=== PATIENT | female | born 1985 | race Caucasian/White ===

== ENCOUNTER 2023-11-26 19:22 | Outpatient (CLI) | payer MEDICAID, SELFPAY ==
[2023-11-26 19:14] LABS: Basophils # 0.1 K/mm3 (0-0.2); Basophils % 0.9 % (0.1-2.0); Eosinophils # 0.1 K/mm3 (0.0-0.4); Eosinophils % 1.6 % (0.1-12.0); Hematocrit 39.8 % (37.0-47.0); Lymphocytes # 1.8 K/mm3 (0.7-4.5); Mean Corpuscular HGB Conc 32.7 g/dL (31.8-35.4); Mean Corpuscular Hemoglobin 31.1 pg (27.0-31.2); Mean Corpuscular Volume 94.9 fl (81-99); Mean Platelet Volume 10.2 fl (7.4-10.4); Monocytes # 0.3 K/mm3 (0.1-1.0); Monocytes % 4.3 % (1.7-9.3); Neutrophils # 3.7 K/mm3 (1.8-7.8); Neutrophils % 63.2 % (37.0-80.0); Platelet Count 331 K/mm3 (142-424); Red Cell Distribution Width 13.4 % (11.5-17.5); White Blood Count 5.9 K/mm3 (4.8-10.8)
[2023-11-26 19:56] LABS: Albumin Level 4.2 g/dl (3.5-5.0); Albumin/Globulin Ratio 1.4 (1.1-1.8); Alkaline Phosphatase 71 U/L (38-126); Anion Gap 11.5 mEq/L (5-15); Bilirubin,Total 0.4 mg/dl (0.2-1.3); Blood Urea Nitrogen 14 mg/dl (7-17); Calcium 9.9 mg/dl (8.4-10.2); Carbon Dioxide 25 mmol/L (22.0-30.0); Chloride 106 mmol/L (98-107); Chol/HDL Ratio 4.7 (1-3.5); Cholesterol 146 mg/dl (140-200); Estimated Glomerular Filt Rate 55 ml/min (>60); Free T4 (Free Thyroxine) 1.66 ng/dl (0.78-2.19); GFR (African American) 67 ML/MIN (>60); Glucose 95 mg/dl (74-100); HDL Cholesterol 31 mg/dl (40-60); Potassium 3.5 mmoL/L (3.5-5.1); Sodium 139 mmol/L (136-145); Total Protein,Serum 7.2 g/dl (6.3-8.2); Triglycerides 119 mg/dl (30-150); VLDL Cholesterol 24 mg/dL (0-40)
[2023-11-26 20:07] LABS: Direct LDL Cholesterol 82.81 mg/dL (100-129)
[2023-11-26 20:28] LABS: Thyroid Stimulating Hormone 0.86 uIU/mL (0.465-4.68)
[2023-11-26 21:04] LABS: Alanine Aminotransferase 37 U/L (12-78); Aspartate Amino Transferase 41 U/L (14-36)
== END 2023-11-26 23:59 ==
LOC: LAB.DROPOF 19:22
PROVIDERS: PCP Nurse Practitioner Acute Care; Visit Provider Nurse Practitioner Acute Care
DX: R53.83 Other fatigue (principal); F41.9 Anxiety disorder, unspecified; Z79.899 Other long term (current) drug therapy
CPT/HCPCS: 80053; 80061; 84439; 84443; 85025

== ENCOUNTER 2025-07-09 08:58 | Outpatient (CLI) | payer OTHER, SELFPAY ==
[2025-07-09 19:13] LABS: Hematocrit 38.1 % (37.0-47.0); Hemoglobin 12.7 g/dL (12.2-16.2); Immature Granulocytes % 0.1 %; Mean Corpuscular HGB Conc 33.3 g/dL (31.8-35.4); Mean Corpuscular Hemoglobin 30.1 pg (27.0-31.2); Mean Corpuscular Volume 90.3 fl (81-99); Nucleated Red Blood Cells % 0 %; Platelet Count 393 K/mm3 (142-424); Red Blood Count 4.22 M/mm3 (4.20-5.40); Red Cell Distribution Width-SD 42.2 fL; White Blood Count 7.2 K/mm3 (4.8-10.8)
[2025-07-09 19:27] LABS: INR 0.94 (0.9-1.1); Prothrombin Time 10.5 seconds (10.1-12.5)
[2025-07-09 19:32] LABS: Albumin Level 3.2 g/dl (3.5-5.0); Chloride 105 mmol/L (98-107); Potassium 3.3 mmoL/L (3.5-5.1); Sodium 137 mmol/L (136-145)
[2025-07-09 19:34] LABS: Alanine Aminotransferase 135 U/L (12-78); Aspartate Amino Transferase 93 U/L (14-36); Blood Urea Nitrogen 12 mg/dl (7-17); Creatinine,Serum 1.00 mg/dl (0.52-1.04); Estimated Glomerular Filt Rate 61 ml/min (>60); GFR (African American) 74 ML/MIN (>60)
[2025-07-09 19:35] LABS: Alkaline Phosphatase 78 U/L (38-126); Bilirubin,Total 0.4 mg/dl (0.2-1.3); Calcium 8.8 mg/dl (8.4-10.2); Carbon Dioxide 24 mmol/L (22.0-30.0); Glucose 90 mg/dl (74-100); HDL Cholesterol 35 mg/dl (40-60); Total Protein,Serum 7.3 g/dl (6.3-8.2)
[2025-07-09 19:37] LABS: HCG Qualitative, Serum Negative (Negative)
[2025-07-09 19:45] LABS: Albumin/Globulin Ratio 0.7 (1.1-1.8); Anion Gap 12.3 mEq/L (5-15); Cholesterol 174 mg/dl (140-200); Globulin 4.5 g/dL (1.3-3.2)
[2025-07-09 19:48] LABS: Triglycerides 437 mg/dl (30-150)
[2025-07-09 20:06] LABS: Thyroid Stimulating Hormone 0.77 uIU/mL (0.465-4.68)
[2025-07-09 20:34] LABS: Hepatitis C Ab Qual. W/ RFX REACTIVE (Negative)
[2025-07-09 22:42] LABS: HIV Combo Retest NEGATIVE (Negative)
[2025-07-11 09:25] LABS: Hep A Ab, Total Positive (Negative); Hep B Core Ab, Total Negative (Negative); Hep B Surface Ab, Qual Reactive (.); Hepatitis B Surface Antigen Negative (Negative)
--- OUTSIDE RECORDS SUMMARY | 2025-07-13 09:02 | XMS_ITS | Clinical Summary ---
Author Organization [employer] [facility] Address [address] [place] [address] Phone Care Team Providers Care Digital Marketing Assistant Name Role Phone Delfina Mason APRN Primary Care Physician [phone] Conditions or Problems Problem Name Problem Code Onset Date Status Entry Date Provider Comment Standard Description Annotate Counseling for nutrition Z71.3 (ICD-10-CM ) 11/07 Inactive 11/07 James Obando APRN Dietary counseling and surveillance PTSD 84981811 (SNOMED CT) 11/07 Active 11/07 James Obando APRN Post-traumatic stress disorder Opioid dependence 82941548 (SNOMED CT) 11/07 Active 11/07 Jamesisa Obando APRN Opioid dependence Drug dependence 991330104 (SNOMED CT) 10/04 Resolved 10/04 James Obando APRN Drug dependence Body mass index (BMI) 24.0-24.9; adult Z68.24 (ICD-10-CM ) 10/28 Active 10/28 Sveta Claros MD Body mass index [BMI] 24.0-24.9, adult Body mass index (BMI) 26.0-26.9; adult Z68.26 (ICD-10-CM ) 10/08 Correction 10/09 Sveta Claros MD Body mass index [BMI] 26.0-26.9, adult UTI PREG- ASYMPTOMATIC O23.90 (ICD-10-CM ) 10/04 Resolved 10/05 Sveta Claros MD Unspecified genitourinary tract infection in , unspecified trimester F/U Z39.2 (ICD-10-CM ) 10/28 Active 10/28 Sveta Claros MD Encounter for routine follow-up Supervision high risk , unspecified trimester 757627175 (SNOMED CT) 10/04 Resolved 10/04 Sveta Claros MD Procedure carried out on subject Maternal drug dependence, antepartum, unspecified trimester 449626517 (SNOMED CT) 10/04 Resolved 10/04 Sveta Claros MD Drug dependence during - baby not yet delivered Supervision of elderly multigravida , unspecified trimester 702018316 (SNOMED CT) 10/04 Resolved 10/04 Sveta Claros MD Supervision of high risk for multigravida Imprisonment and other incarceratio n 77635161 (SNOMED CT) Resolved Sveta Claros MD Imprisonment Body mass index (BMI) 26.0-26.9; adult Z68.26 (ICD-10-CM ) 10/08 Removed 10/09 Sveat Claros MD Body mass index [BMI] 26.0-26.9, adult Body mass index (BMI) 26.0-26.9; adult Z68.26 (ICD-10-CM ) 10/02 Correction 10/02 Sveta Claros MD Body mass index [BMI] 26.0-26.9, adult 36 weeks gestation of 57844804 (SNOMED CT) 10/08 Inactive 10/09 Sveta Claros MD Gestation period, 36 weeks Body mass index (BMI) 26.0-26.9; adult Z68.26 (ICD-10-CM ) 10/02 Removed 10/02 Carmelina Bragg CNM Body mass index [BMI] 26.0-26.9, adult Body mass index (BMI) 26.0-26.9; adult Z68.26 (ICD-10-CM ) 09/25 Correction 09/25 Carmelina Bragg CNM Body mass index [BMI] 26.0-26.9, adult 34 weeks gestation of 24076684 (SNOMED CT) 09/25 Inactive 09/25 Sveta Claros MD Gestation period, 34 weeks Body mass index (BMI) 26.0-26.9; adult Z68.26 (ICD-10-CM ) 09/25 Removed 09/25 Sveta Claros MD Body mass index [BMI] 26.0-26.9, adult Body mass index (BMI) 25.0-25.9; adult Z68.25 (ICD-10-CM ) 09/15 Correction 09/15 Sveta Claros MD Body mass index [BMI] 25.0-25.9, adult Body mass index (BMI) 25.0-25.9; adult Z68.25 (ICD-10-CM ) 09/15 Removed 09/15 Carmelina Bragg ALVAREZM Body mass index [BMI] 25.0-25.9, adult Body mass index (BMI) 25.0-25.9; adult Z68.25 (ICD-10-CM ) Correction Carmelina Bragg ALVAREZM Body mass index [BMI] 25.0-25.9, adult Body mass index (BMI) 25.0-25.9; adult Z68.25 (ICD-10-CM ) Removed Carmelina PINOM Body mass index [BMI] 25.0-25.9, adult Body mass index (BMI) 23.0-23.9; adult Z68.23 (ICD-10-CM ) 10/04 Correction 10/04 Carmelina Bragg ALVAREZM Body mass index [BMI] 23.0-23.9, adult Irregular menses 35027105 (SNOMED CT) 10/04 Resolved 10/04 Carmelina Mamie Mahsa ALVAREZM Irregular periods Imprisonment and other incarceratio n 67949610 (SNOMED CT) Removed Carmelinaghazala PINOM Imprisonment HEPATITIS C 18085165 (SNOMED CT) 10/06 Inactive 10/06 Sveta Claros MD Viral hepatitis C UTI PREG- ASYMPTOMATIC O23.90 (ICD-10-CM ) 10/04 Removed 10/05 Sveta Claros MD Unspecified genitourinary tract infection in , unspecified trimester 27 weeks gestation of 25527506 (SNOMED CT) 10/04 Inactive 10/05 Sveta Claros MD Gestation period, 27 weeks Body mass index (BMI) 23.0-23.9; adult Z68.23 (ICD-10-CM ) 10/04 Removed 10/04 Sveta Claros MD Body mass index [BMI] 23.0-23.9, adult Supervision of elderly multigravida , unspecified trimester 983199597 (SNOMED CT) 10/04 Removed 10/04 Sveta Claros MD Supervision of high risk for multigravida History of bacterial endocarditis 784475339 (SNOMED CT) 10/04 Active 10/04 Sveta Claros MD History of endocarditis Maternal drug dependence, antepartum, unspecified trimester 028207334 (SNOMED CT) 10/04 Removed 10/04 Sveta Claros MD Drug dependence during - baby not yet delivered Family planning 301701575 (SNOMED CT) 05/22 Resolved 05/22 Sveta Claros MD Contraception care Drug dependence 040829029 (SNOMED CT) 10/04 Removed 10/04 Sveta Claros MD Drug dependence Irregular menses 52330563 (SNOMED CT) 10/04 Removed 10/04 Sveta Claros MD Irregular periods Supervision high risk , unspecified trimester 698345268 (SNOMED CT) 10/04 Removed 10/04 Sveta Claros MD Procedure carried out on subject Family planning 291921786 (SNOMED CT) 05/22 Removed 05/22 Katlyn Becerra APRN Contraception care PERIAPICAL ABSCESS WITHOUT SINUS 087184461 (SNOMED CT) 04/26 Inactive 04/26 Maximiliano Dodson DMD Periapical abscess without sinus tract Medications Medication Instructions Start Date Stop Date Generic Name NDC Provider ESCITALOPRAM OXALATE 10 MG TABS Take a HALF a tablet for 7 nights, then take a WHOLE tablet nightly - deliver to [facility] at [address] [place] [address] ESCITALOPRAM OXALATE [id number] James Obando APRN TRAZODONE HCL 50 MG TABS Take 1 tablet every night by mouth - deliver to [facility] at [address] [place] [address] [employer] [place] TRAZODONE HCL [id number] James Gisella BLOCK LAYER SUBOXONE FILM 10mg qd BUPRENORPHINE HCL-NALOXONE HCL FILM [id number] James Obando BLOCK LAYER SUBOXONE FILM BUPRENORPHINE HCL-NALOXONE HCL FILM 88434646086 Sveta Claros MD METHYLDOPA 500 MG TABS TAKE 1 TABLET BY MOUTH 2 TIMES A DAY METHYLDOPA [id number] Sveta Claros MD KEFLEX 500 MG ORAL CAPSULE TAKE 1 CAPSULE BY MOUTH 2 TIMES A DAY FOR 7 DAYS CEPHALEXIN [id number] Sveta Claros MD MACROBID 100 MG CAPS TAKE 1 CAPSULE BY MOUTH 2 TIMES A DAY FOR 7 DAYS NITROFURANTOIN MONOHYD MACRO [id number] Carmelina Satchnicky Mahsa CNM MACROBID 100 MG CAPS TAKE 1 CAPSULE BY MOUTH 2 TIMES A DAY FOR 7 DAYS NITROFURANTOIN MONOHYD MACRO [id number] Carmelina Satchformerly [facility] Mahsa CNM MACROBID 100 MG CAPS TAKE 1 CAPSULE BY MOUTH 2 TIMES A DAY FOR 7 DAYS NITROFURANTOIN MONOHYD MACRO [id number] Carmelina Satchformerly [facility] [place] CNM KEFLEX 500 MG ORAL CAPSULE TAKE 1 CAPSULE BY MOUTH 2 TIMES A DAY FOR 7 DAYS CEPHALEXIN [id number] Sveta Claros MD PLUS 27-1 MG TABS TAKE 1 TABLET BY MOUTH ONCE A DAY OR COVERED EQUIVALENT VIT-FE FUMARATE-FA [id number] Sveta Claros MD SPRINTEC 28 0.25-35 MG-MCG TABS TAKE 1 TABLET BY MOUTH 1 TIME A DAY NORGESTIMATE-ETH ESTRADIOL [id number] Sveta Claros MD AMOXICILLIN 500 MG TABS TAKE 4 TABLETS 1 HOUR BEFORE DENTAL APPOINTMENT AMOXICILLIN [id number] Shavonne Ashley DMD SPRINTEC 28 0.25-35 MG-MCG TABS TAKE 1 TABLET BY MOUTH 1 TIME A DAY NORGESTIMATE-ETH ESTRADIOL [phone] Katlyn Becerra BLOCK LAYER AMOXICILLIN 500 MG TABS TAKE 1 TABLET EVERY 8 HOURS AMOXICILLIN [id number] Maximiliano Martineschani RODRIGUEZ Medications Administered No information available. Allergies, Adverse Reactions, Alerts Observed no known allergies at Results Date Name Value Unit Range Flag Description Office Visit: OB Visit rm 3 HSV GENITAL no Herpes si mplex virus identified in Genital specimen by Organism specific culture PREG TST URN positive beta HC G, urine, semiquantitative Lab Report: OBSTETRIC PANEL, OBSTETRIC PANEL, OBSTETRIC PANEL, OBSTETRIC ... HEP C AB REACTIVE NON-REACTI A Hepatiti s C virus Ab [Presence] in Serum BILI INDIREC 0.2 MG/DL (CALC) mg/dL 0.2-1.2 N bilirubin, serum , indirect BILI DIRECT 0.1 mg/dL < OR = 0.2 N Biliru bin.direct [Mass/volume] in Serum or Plasma URIC ACID 4.8 mg/dL 2.5-7.0 N Urate [Mass /volume] in Serum or Plasma SGPT (ALT) 23 U/L 6-29 N Alanine aminotransferase [Enzymatic activity/volume] in Serum or Plasma SGOT (AST) 25 U/L 10-30 N Aspartate aminotransferase [Enzymatic activity/volume] in Serum or Plasma ALK PHOS 58 U/L 33-115 N Alkaline kaylin sphatase [Enzymatic activity/volume] in Blood BILI TOTAL 0.3 mg/dL 0.2-1.2 N Bilirubin. total [Mass/volume] in Serum or Plasma A/G RATIO 1.2 (calc) 1.0-2.5 N Albumin/ Globulin [Mass Ratio] in Serum or Plasma GLOBULIN TOT 2.8 G/DL (CALC) g/dL 1.9-3.7 N Globulin [Mass/volume] in Serum ALBUMIN EOP 3.4 g/dL 3.6-5.1 L Albumin [Mass/volume] in Serum or Plasma by Electrophoresis PROTEIN, TOT 6.2 g/dL 6.1-8.1 N Protein [Mass/volume] in Serum or Plasma CALCIUM 8.8 mg/dL 8.6-10.2 N Calcium [Moles/volume] in Serum or Plasma CO2 27 mmol/L 20-32 N Carbon dioxid e, total [Moles/volume] in Venous blood CHLORIDE BLD 106 mmol/L 98-110 N chloride , blood POTASSIUM 4.1 mmol/L 3.5-5.3 N Potassium [Moles/volume] in Serum or Plasma SODIUM 139 mmol/L 135-146 N Sodium [Moles/volume] in Serum or Plasma BUN/CREAT NOT APPLICABLE (calc) 6-22 Urea nitrogen/Creatinine [Mass Ratio] in Serum or Plasma EGFR IF AFA 121 mL/min/1 .73m2 >OR = 60 N Glomerular filtration rate/1.73 sq M.predicted among blacks [Volume Rate/Area] in Serum, Plasma or Blood by Creatinine-based formula (MDRD) EGFR 104 mL/min/1 .73m2 >OR = 60 N Glomerular filtration rate/1.73 sq M.predicted [Volume Rate/Area] in Serum, Plasma or Blood by Creatinine-based formula (MDRD) CREATININE 0.74 mg/dL 0.50-1.10 N Creatini ne [Mass/volume] in Serum or Plasma BUN 9 mg/dL 7-25 N Urea nitrogen [Mass/volume] in Serum or Plasma GLUCOSE SER 66 mg/dL 65-139 N Glucose [Mass/volume] in Serum or Plasma RUBELLA IGG 2.45 N Rubella v irus IgG Ab [Ratio] in Serum --1st specimen/2nd specimen HBSAG NON-REACTIVE NON-REACTI N Hepat itis B virus surface Ag [Units/volume] in Serum ABO/RH RH(D) POSITIVE blood type with RH factor ABO BLD GRP O ABO blood group ANTIBODY SCR NO ANTIBODIES DETECTED N antibody screen, serum Lab Report: THINPREP TIS PAP AND HPV mRNA E6/E7, CHLAMYDIA/N.GONORRHOEAE ... HPV RESULT Not Detected Not Detect N Hu man papilloma virus identified in Specimen Lab Report: DRUG MONITORSHELDON YESIKA 1, SCREEN, URINE, CULTURE, URINE, ROUTIN ... URINE CULT - Bacteria i dentified in Urine by Culture PHENCYCLIDIN NEGATIVE ng/mL <25 N Phencyc lidine [Presence] in Urine OXYCODONE NEGATIVE <100 N Oxycodone urine screening METHADONEURN NEGATIVE <100 N Methado ne [Presence] in Urine by Screen method COCAINE UR NEGATIVE <150 N cocaine, urine MARIJUANAURN NEGATIVE <20 N Marijua na, cannabinoid screen Urine BENZODIAZ UR NEGATIVE <100 N Benzodi azepines [Presence] in Urine AMPHETAMI UR NEGATIVE <500 N Ampheta mines [Presence] in Urine Office Visit: OB Visit HGB 10.7 g/dL Hemoglobin [Mass/volume] in Blood Lab Report: GLUCOSE TOLERANC E TEST, GEST, 3 SPEC (75G), CBC (INCLUDES DI ... RPR NON-REACTIVE NON-REACTI N Reagi n Ab [Units/volume] in Serum by VDRL HIV AB NON-REACTIVE NON-REACTI N HIV 1 Ab [Presence] in Serum, Plasma or Blood by Immunoblot BASO % MANU 0.3 % N basophils as percent of blood leukocytes, manual count EOS % MANU 1.8 % N eosinophil s as percent of blood leukocytes, manual count MONOCYTE % 7.0 % N Monocytes/ 100 leukocytes in Blood by Automated count LYMPH% P BLD 26.6 % N lymphocy christian as percent of blood leukocytes PMN % 64.3 % N Neutrophils/1 00 leukocytes in Blood by Automated count ABS BASOS 20 {Cells}/ uL 0-200 N Basophils [#/volume] in Blood ABS EOS 119 {Cells}/ uL 15-500 N Eosinophils [#/volume] in Blood ABS MONOS 462 {Cells}/ uL 200-950 N Monocytes [#/volume] in Blood ABSLYMPHCT 1756 {Cells}/ uL 850-3900 N Lymphocytes [#/volume] in Blood ABS NEUTROPH 4244 CELLS/UL 10*3/uL 9016-4153 N Neutrophils [#/volume] in Blood MPV 10.7 fL 7.5-12.5 N Platelet josiah n volume [Entitic volume] in Blood by Jh PLATELETK/UL 259 THOUSAND/UL 10*3/uL 140-400 N platelet count RDW 12.5 % 11.0-15.0 N Erythrocyte distribution width [Ratio] by Automated count OL-MCHC 35.0 g/dL 32.0-36.0 N mean corpus cular hemoglobin concentration, rbc MCH 31.5 pg 27.0-33.0 N MCH [Entiti c mass] by Automated count MCV 90.0 fL 80.0-100.0 N MCV [Entit ic volume] by Automated count HCT 32.3 % 35.0-45.0 L Hematocrit [Volume Fraction] of Blood by Automated count RBC M/UL 3.59 MILLION/UL 10*6/uL 3.80-5.10 L re d blood count WBC CT BLOOD 6.6 10*3/uL 3.8-10.8 N leukocy te count, blood GTT 2H 105 mg/dL <153 N blood glucose , 2 hours after glucose tolerance test GTT 1H 162 mg/dL <180 N blood glucose , 60 minutes after glucose tolerance test GTT FASTING 75 mg/dL 65-91 N glucose t olerance test with glucose, fasting Lab Report: CULTURE, URINE, ROUTINE , CULTURE, URINE, ROUTINE TOBRAMYCIN <=1S ug/mL tobramycin serum, random Office Visit: OB Visit rm 5 SPEC GR URIN 1.025 Specific gravity of Urine by Test strip PH URINE 6.5 pH of Urine by Test strip APPEARANCE U cloudy Appearan ce of Urine UA COLOR yellow Color of Uri ne GLUCOSE, URN negative Glucose [Mass/volume] in Urine by Test strip BILIRUBIN UR negative Bilirub in.total [Presence] in Urine by Test strip KETONES URN negative Ketones [Mass/volume] in Urine by Test strip BLOOD UR DIP negative blood i n urine (hemoglobin) by dipstick PROTEIN, URN trace protein, urine, semiquantitative (dipstick) UROBILINOGEN 2 Urobilin ogen [Presence] in Urine by Test strip NITRITE URN negative Nitrite [Presence] in Urine by Test strip WBC DIPSTK U trace Leukocyt e esterase [Presence] in Urine by Test strip Lab Report: STREPTOCOCCUS, G ROUP B CULTURE STREP B CULT See Note Below S treptococcus agalactiae [Presence] in Specimen by Organism specific culture Plan of Care Type Date Detail Pending order Urine Dip Auto 8 1003 Pending order Hemoglobin 60421 Pending order Urine Dip Auto 8 1003 Pending order Urine Dip Manual 86334 Pending order T1 Urine Culture Pending order Urine Dip Manual 95064 Pending order Test 8 1025 Pending order Urine Dip Auto 8 1003 Pending order Test 8 1025 Patient education Medications Procedures Code Procedure Name Date Entry Date CPT-03007() Psych Dx Eval WITH E&M -MD/BLOCK LAYER Only() [facility]-[id number] Medication Reconciliation CPT-3074F Most recent systolic blood pressure <130 mm Hg CPT-3079F Most recent diastoli c blood pressure 80-89 mm Hg [id number] Medication Reconciliation CPT-3077F Most recent systolic blood pressure >=140 mm Hg CPT-81265 Urine Dip Auto 89308 [facility] 96616 T1 G.C. Chlamydia [facility] 5617 T1 Group B Strep CPT-3074F Most recent systolic blood pressure <130 mm Hg CPT-3074F Most recent systolic blood pressure <130 mm Hg CPT-87208 Hemoglobin 34014 CPT-60079 Urine Dip Auto 34028 [facility] 395 T1 Urine Culture SCT-[id number] Medication Reconciliation CPT-3075F Most recent systolic blood pressure 130-139 mm Hg CPT-3079F Most recent diastoli c blood pressure 80-89 mm Hg SCT-[id number] SNOMED-CT: 247800004 708859 Current Medications Documented CPT-07261 Urine Dip Manual 52758 09/25 [facility] 6399 T1 CBC with diff [facility] 36938 T1 GTT 3 Specimen [facility] 29029 T1 HIV 1/2 Ag & Ab 4 th gen -consent required [facility] 70902 T1 RPR w/ reflex to titer & confirmation CPT-3074F Most recent systolic blood pressure <130 mm Hg CPT-3078F Most recent diastoli c blood pressure <80 mm Hg CPT-80541 Urine Dip Manual 64291 09/15 OB US GEN Ultrasound CPT-3074F Most recent systolic blood pressure <130 mm Hg CPT-3078F Most recent diastoli c blood pressure <80 mm Hg BPP NST W 28 BPP with NST 1 Weekly to 28 OB US GEN Ultrasound CPT-10189 Cystic Fibrosis Screen 08/04 SCT-[id number] Medication Reconciliation CPT-3074F Most recent systolic blood pressure <130 mm Hg CPT-3078F Most recent diastoli c blood pressure <80 mm Hg ECHO ECHO [facility] 70196 T1 CMP [facility] 905 T1 Uric Acid CPT-36818 Test 89028 CPT-50295 Urine Dip Auto 25633 SCT-[id number] SNOMED-CT: 426844694 Smoking Cessation Counseling SCT-[id number] SNOMED-CT: 189128653 954118 Current Medications Documented [facility] 09234 T1 Urine Drug Screen w/o Confirmation 201 05/21/25 [facility] 8472 T1 Hep C Ab [facility] 33550 T1 Hepatic Function Panel 20 29/07/25 [facility] 24455 T1 HIV 1/2 Ag & Ab 4 th gen -consent required [facility] 03152 T1 Panel (Obstetric Panel) 08/04 [facility] 98788 T1 ThinPrep w HR HPV /GC/Chlamydia mRNA E6/E7 [facility] 395 T1 Urine Culture CPT-3074F Most recent systolic blood pressure <130 mm Hg CPT-3078F Most recent diastoli c blood pressure <80 mm Hg CPT-84005 Test 83183 2017/09 /12 Vital Signs Date Name Value Unit Description BMI (Body Mass Index) 24.29 kg/m2 Bod y Mass Index (Ratio) BP Diastolic 84 mm[Hg] blood pressu re, diastolic BP Systolic 116 mm[Hg] blood pressur e, systolic BSA (Body Surface Area) 1.70 b yesi surface area Heart Rate 99 /min pulse rate Height 64 [in_us] height E&M Height 162.56 cm height in cent imeters E&M Weight Measured 64.09 kg weight in kilograms E&M Weight Measured 141 [lb_av] weight E& M Weight Measured 141 [lb_av] weight E& M Body Temperature 97.9 [degF] temperat ure E&M Body Temperature 36.61 Betsy temperat ure in centigrade E&M Immunizations Vaccine Administration Date Standard Description CVX Co de Dose PRIVATE Fluzone Quadrivalent Prefilled Syringe 0.5 ML for 6 mos - 64 years PRIVATE Fluzone Quadrivalent Prefilled Syringe 0.5 ML for 6 mos - 64 years 150 Unknown Not given: Patient d ecision Advance Directives No information available.
== END 2025-07-09 23:59 ==
LOC: LAB.DROPOF 07-13 08:58
PROVIDERS: PCP Nurse Practitioner Family; Visit Provider Nurse Practitioner Family
DX: F41.1 Generalized anxiety disorder (principal); F41.0 Panic disorder [episodic paroxysmal anxiety]; R76.89 Other specified abnormal immunological findings in serum; I10 Essential (primary) hypertension; R53.83 Other fatigue; Z91.89 Other specified personal risk factors, not elsewhere classified
CPT/HCPCS: 80053; 80061; 84443; 84703; 85025; 85610; 86706; 86803; 87389; 87522; 87902

== ENCOUNTER 2025-07-21 09:48 | Outpatient (CLI) | payer OTHER, SELFPAY ==
--- OUTSIDE RECORDS SUMMARY | 2019-07-08 03:30 | XMS_ITS | Continuity of Care Document ---
Author Organization [facility] ction Address [address] [place] [address] Phone Care Team Providers Care Sandblaster Supervisor Name Role Phone Marian Wen MD Unavailable Unavailable Allergies, Adverse Reactions, Alerts Substance Reaction Status Criticality No Known Allergies Active No Inform ation Medications Medication Instructions Dosage Effective Dates (start - stop) Status Comments buprenorphine HCl [address] 1.5 tablet by sublingual route every day allow to dissolve slowly in mouth without chewing or swallowing 12 MG - Active VITAMINS (unknown strength) take 1 tablet by oral route every day Not Available - Active Procedures Procedure Date OFFICE/OUTPATIENT VISIT, EST PT TOBACCO SCREEN RCVD TLK SYST BP < 130 MM HG Sys bp less 140 DIAST BP < 80 MM HG Fraire bp less 90 WEIGHT RECORD BODY MASS INDEX DOCD Advance Directives Directive Yes / No Effective Date File Name No Information Encounters Encounter Description Practice Location Reason(s) For Visit Diagnoses Date Provider OFFICE/OUTPATI ENT VISIT, EST [facility], [address] [place], [address], [place] tel:[phone] [facility] Establish PCP (chief complaint)Hx IIVDA (chief complaint)pr egnancy (chief complaint) Body mass index (BMI) 24.0-24.9, adultCigarette smokerSecond trimester pregnancyEncntr for general adult medical exam w/o abnormal findings 2018 Behzad Fonseca. [address] [facility] 3rd Floor, [address] [place] [address] , [place], [id number], [place]. tel:[phone] Family History Family Member Type Diagnosis Age At Onset Brother Problem (finding) Mental illness Father Problem (finding) alcoholism Sister Problem (finding) Mental illness Father Problem (finding) stroke Mother Problem (finding) alcoholism Mother Problem (finding) Mental illness Mother Problem (finding) Drug misuse by mother Mother Problem (finding) malignant neop lasm of liver (Cause Of ) Payers Payer name Insurance type Covered alliance party ID Authoriza tijoi(s) [facility] [id number] [facility] [id number] Social History Type Description Quantity Date Captured Comments Alcohol Use Details No Caffeine Use Details Tobacco Use Status Moderate cigarette smoker (10-19 cigs/day) Smoking Status Heavy tobacco smoker Smoking Tobacco Use Details Cigarette: No Details Available Cigarette: 10 Cigarettes per day, Sex Female Yes - Patient is currently Sexual Orientation Straight or heterosexual Gender Identity Female Vital Signs Date / Time: Height Weight BMI Pulse Rate Blood Pressure Temperature Respiratory Rate Body Surface Area Head Circumference Head Circ. Percentile Wt./Brett. Percentile BMI percentile Pulse Ox Inhaled Ox 9:52 AM 64.00 in 64.864 kg (143.00 lbs) 24.5 5 kg/m eter (2) 83 /min 124/71 mm[Hg] 98.30 F 1.71 meter(2) Chief Complaint And Reason For Visit From encounter dated '07/08/2019 08:30'. Establish PCP (chief complaint). Description: no previous PCP, last dental 04/2019 Hx IIVDA (chief complaint). Description: Relieving factors include opioid substitution. complicatedpast endocarditis; Dr Mcneill through [facility] (chief complaint). Description: Severity: high risk (opioid dependence). Associated symptoms include constipation, fatigue, heartburn. Pertinent negatives include bleeding, edema, fever, headache, nausea. Additional information: on PNV Due date 11/03/19. care through [facility] but plans to switch to [facility]; refusing flu shot; Tdap discussed.. Plan Of Treatment Date Type Action Status Goal Tobacco cessation counseling completed Goal Lifestyle education regardin g diet completed History Of Present Illness Encounter Date Complaint History Of Prese nt Illness Establish PCP no previous PCP, last dental 04/2019 Severity: high r isk (opioid dependence). Associated symptoms include constipation, fatigue, heartburn. Pertinent negatives include bleeding, edema, fever, headache, nausea. Additional information: on PNV Due date 11/03/19. care through [facility] but plans to switch to [facility]; refusing flu shot; Tdap discussed.. Hx IIVDA Relieving factor s include opioid substitution. complicated past endocarditis; Dr Mcneill through [facility] Instructions Date Instruction Additional Infor matlashell I gave you informati on on stop smoking programs Related to Cigarette smoker Follow up as instruc mary ellen. Ask your providers about a Tdap Related to Second trimester Lifestyle education regarding di et Related to Body mass index (BMI) 24.0-24.9, adult Assessments Type Assessment Date assessment Body mass index (BMI) 24.0-24.9, adult assessment Cigarette smoker assessment Second trimester impression You are receiving care impression You are aware you need to stop s moking assessment Encntr for general adult medical exam w/o abnormal findings Mental Status Date Cognitive Assessment Normal Orientation
--- OUTSIDE RECORDS SUMMARY | 2025-07-21 09:51 | XMS_ITS | Clinical Summary ---
Author Organization [facility] Address [address] [place] [address] Phone Care Team Providers Care Supervisor Television Chassis Repair Name Role Phone Delfina Mason APRN Primary Care Physician [phone] Conditions or Problems Problem Name Problem Code Onset Date Status Entry Date Provider Comment Standard Description Annotate Counseling for nutrition Z71.3 (ICD-10-CM ) 11/07 Inactive 11/07 James Obando APRN Dietary counseling and surveillance PTSD 91731605 (SNOMED CT) 11/07 Active 11/07 James Obando APRN Post-traumatic stress disorder Opioid dependence 18548898 (SNOMED CT) 11/07 Active 11/07 Jamesisa Obando APRN Opioid dependence Drug dependence 258757853 (SNOMED CT) 10/04 Resolved 10/04 James Obando [...] follow-up Supervision high risk , unspecified trimester 221933301 (SNOMED CT) 10/04 Resolved 10/04 Sveta Claros MD Procedure carried out on subject Maternal drug dependence, antepartum, unspecified trimester 835761192 (SNOMED CT) 10/04 Resolved 10/04 Sveta Claros MD Drug dependence during - baby not yet delivered Supervision of elderly multigravida , unspecified trimester 108971882 (SNOMED CT) 10/04 Resolved 10/04 Sveta Claros MD Supervision of high risk for multigravida Imprisonment and other incarceratio n 18502227 (SNOMED CT) Resolved Sveta Claros MD Imprisonment Body mass index (BMI) 26.0-26.9; adult Z68.26 (ICD-10-CM ) 10/08 Removed 10/09 Sveta Claros MD Body mass index [BMI] 26.0-26.9, adult Body mass index (BMI) 26.0-26.9; adult Z68.26 (ICD-10-CM ) 10/02 Correction 10/02 Sveta Claros MD Body mass index [BMI] 26.0-26.9, adult 36 weeks gestation of 75759870 (SNOMED CT) 10/08 Inactive 10/09 Sveta Claros MD Gestation period, 36 weeks Body mass index (BMI) 26.0-26.9; adult Z68.26 (ICD-10-CM ) 10/02 Removed 10/02 Carmelina Bragg CNM Body mass index [BMI] 26.0-26.9, adult Body mass index (BMI) 26.0-26.9; adult Z68.26 (ICD-10-CM ) 09/25 Correction 09/25 Carmelina Bragg CNM Body mass index [BMI] 26.0-26.9, adult 34 weeks gestation of 59837517 (SNOMED CT) 09/25 Inactive 09/25 Sveta Calros MD Gestation period, 34 weeks Body mass [...] adult Z68.23 (ICD-10-CM ) 10/04 Correction 10/04 Caremlina Bragg ALVAREZM Body mass index [BMI] 23.0-23.9, adult Irregular menses 61817502 (SNOMED CT) 10/04 Resolved 10/04 Carmelina Mamie [place] ALVAREZM Irregular periods Imprisonment and other incarceratio n 37641048 (SNOMED CT) Removed Carmelinaghazala PINOM Imprisonment HEPATITIS C 09938834 (SNOMED CT) 10/06 Inactive 10/06 Sveta Claros MD Viral hepatitis C UTI PREG- ASYMPTOMATIC O23.90 (ICD-10-CM ) 10/04 Removed 10/05 Sveta Claros MD Unspecified genitourinary tract infection in , unspecified trimester 27 weeks gestation of 53294340 (SNOMED CT) 10/04 Inactive 10/05 Sveta Claros MD Gestation period, 27 weeks Body mass index (BMI) 23.0-23.9; adult Z68.23 (ICD-10-CM ) 10/04 Removed 10/04 Sveta Claros MD Body mass index [BMI] 23.0-23.9, adult Supervision of elderly multigravida , unspecified trimester 775117970 (SNOMED CT) 10/04 Removed 10/04 Sveta Claros MD Supervision of high risk for multigravida History of bacterial endocarditis 991677958 (SNOMED CT) 10/04 Active 10/04 Sveta Claros MD History of endocarditis Maternal drug dependence, antepartum, unspecified trimester 007070182 (SNOMED CT) 10/04 Removed 10/04 Sveta Claros MD Drug dependence during - baby not yet delivered Family planning 269871716 (SNOMED CT) 05/22 Resolved 05/22 Sveta Claros MD Contraception care Drug dependence 211868204 (SNOMED CT) 10/04 Removed 10/04 Sveta Claros MD Drug dependence Irregular menses 04715932 (SNOMED CT) 10/04 Removed 10/04 Sveta Claros MD Irregular periods Supervision high risk , unspecified trimester 886586239 (SNOMED CT) 10/04 Removed 10/04 Sveta Claros MD Procedure carried out on subject Family planning 940499116 (SNOMED CT) 05/22 Removed 05/22 Katlyn Becerra APRN Contraception care PERIAPICAL ABSCESS WITHOUT SINUS 015495091 (SNOMED CT) 04/26 Inactive 04/26 Maximiliano Dodson DMD Periapical abscess without sinus tract Medications Medication Instructions Start Date Stop Date Generic Name NDC Provider ESCITALOPRAM OXALATE 10 MG TABS Take a HALF a tablet for 7 nights, then take a WHOLE tablet nightly - deliver to [facility] at [address] [place] [address] ESCITALOPRAM OXALATE [id number] James Obando APRN TRAZODONE HCL 50 MG TABS Take 1 tablet every night by mouth - deliver to [facility] at [address] [place] [address] [employer] [place] TRAZODONE HCL [id number] James Gisella CURRENCY EXAMINER SUBOXONE FILM 10mg qd BUPRENORPHINE HCL-NALOXONE HCL FILM 14010229282 James Obando CURRENCY EXAMINER SUBOXONE FILM BUPRENORPHINE HCL-NALOXONE HCL FILM 51275859114 Sveta Claros MD METHYLDOPA 500 MG TABS TAKE 1 TABLET BY MOUTH 2 TIMES A DAY METHYLDOPA 10588855644 Sveta Claros MD KEFLEX 500 MG ORAL CAPSULE TAKE 1 CAPSULE BY MOUTH 2 TIMES A DAY FOR 7 DAYS CEPHALEXIN 66189352574 Sveta Claros MD MACROBID 100 MG CAPS TAKE 1 CAPSULE BY MOUTH 2 TIMES A DAY FOR 7 DAYS NITROFURANTOIN MONOHYD MACRO [phone] Carmelina Satchnicky [place] CNM MACROBID 100 MG CAPS TAKE 1 CAPSULE BY MOUTH 2 TIMES A DAY FOR 7 DAYS NITROFURANTOIN MONOHYD MACRO [id number] [facility] [place] CNM MACROBID 100 MG CAPS TAKE 1 CAPSULE BY MOUTH 2 TIMES A DAY FOR 7 DAYS NITROFURANTOIN MONOHYD MACRO [id number] [facility] [place] CNM KEFLEX 500 MG ORAL CAPSULE TAKE 1 CAPSULE BY MOUTH 2 TIMES A DAY FOR 7 DAYS CEPHALEXIN [id number] Sveta Claros MD PLUS 27-1 MG TABS TAKE 1 TABLET BY MOUTH ONCE A DAY OR COVERED EQUIVALENT VIT-FE FUMARATE-FA 68050886346 Sveta Claros MD SPRINTEC 28 0.25-35 MG-MCG TABS TAKE 1 TABLET BY MOUTH 1 TIME A DAY NORGESTIMATE-ETH ESTRADIOL 13549299723 Sveta Claros MD AMOXICILLIN 500 MG TABS TAKE 4 TABLETS 1 HOUR BEFORE DENTAL APPOINTMENT AMOXICILLIN [id number] Shavonne Ashley DMD SPRINTEC 28 0.25-35 MG-MCG TABS TAKE 1 TABLET BY MOUTH 1 TIME A DAY NORGESTIMATE-ETH ESTRADIOL [id number] Katlyn Becerra CURRENCY EXAMINER AMOXICILLIN 500 MG TABS TAKE 1 TABLET EVERY 8 HOURS AMOXICILLIN 79744226284 Maximiliano Martineschani RODRIGUEZ Medications Administered No information [...] in Blood ABS NEUTROPH 4244 CELLS/UL 10*3/uL 7723-4362 N Neutrophils [#/volume] in Blood MPV 10.7 [...] Dip Auto 8 1003 Pending order Hemoglobin 98336 Pending order Urine Dip Auto 8 1003 Pending order Urine Dip Manual 53040 Pending order T1 Urine Culture Pending order Urine Dip Manual 42595 Pending order Test 8 1025 Pending order Urine Dip Auto 8 1003 Pending order Test 8 1025 Patient education Medications Procedures Code Procedure Name Date Entry Date CPT-20381() Psych Dx Eval WITH E&M -MD/CURRENCY EXAMINER Only() [facility]-[id number] Medication Reconciliation CPT-3074F Most recent systolic blood pressure <130 mm Hg CPT-3079F Most recent diastoli c blood pressure 80-89 mm Hg SCT-[id number] Medication Reconciliation CPT-3077F Most recent systolic blood pressure >=140 mm Hg CPT-12174 Urine Dip Auto 27191 [facility] 95155 T1 G.C. Chlamydia [facility] 5617 T1 Group B Strep CPT-3074F Most recent systolic blood pressure <130 mm Hg CPT-3074F Most recent systolic blood pressure <130 mm Hg CPT-24949 Hemoglobin 29288 CPT-41264 Urine Dip Auto 69994 [facility] 395 T1 Urine Culture SCT-[id number] Medication Reconciliation CPT-3075F Most recent systolic blood pressure 130-139 mm Hg CPT-3079F Most recent diastoli c blood pressure 80-89 mm Hg SCT-[id number] SNOMED-CT: 432541726 572325 Current Medications Documented CPT-56185 Urine Dip Manual 14623 09/25 [facility] 6399 T1 CBC with diff [facility] 87401 T1 GTT 3 Specimen [facility] 70692 T1 HIV 1/2 Ag & Ab 4 th gen -consent required [facility] 19305 T1 RPR w/ reflex to titer & confirmation CPT-3074F Most recent systolic blood pressure <130 mm Hg CPT-3078F Most recent diastoli c blood pressure <80 mm Hg CPT-10420 Urine Dip Manual 53572 09/15 OB US GEN Ultrasound CPT-3074F Most recent systolic blood pressure <130 mm Hg CPT-3078F Most recent diastoli c blood pressure <80 mm Hg BPP NST W 28 BPP with NST 1 Weekly to 28 OB US GEN Ultrasound CPT-25846 Cystic Fibrosis Screen 08/04 SCT-[id number] Medication Reconciliation CPT-3074F Most recent systolic blood pressure <130 mm Hg CPT-3078F Most recent diastoli c blood pressure <80 mm Hg ECHO ECHO [facility] 25514 T1 CMP [facility] 905 T1 Uric Acid CPT-31337 Test 51427 CPT-89449 Urine Dip Auto 86973 SCT-167401470 SNOMED-CT: 340043491 Smoking Cessation Counseling SCT-[id number] SNOMED-CT: 681156252 595142 Current Medications Documented [facility] 08639 T1 Urine Drug Screen w/o Confirmation 201 05/21/25 [facility] 8472 T1 Hep C Ab [facility] 07198 T1 Hepatic Function Panel 20 29/07/25 [facility] 29766 T1 HIV 1/2 Ag & Ab 4 th gen -consent required [facility] 23438 T1 Panel (Obstetric Panel) 08/04 [facility] 63458 T1 ThinPrep w HR HPV /GC/Chlamydia mRNA E6/E7 [facility] 395 T1 Urine Culture CPT-3074F Most recent systolic blood pressure <130 mm Hg CPT-3078F Most recent diastoli c blood pressure <80 mm Hg CPT-55323 Test 00134 2017/09 /12 Vital Signs Date Name Value [...]
--- OUTSIDE RECORDS SUMMARY | 2025-07-21 09:52 | XMS_ITS | Encounter Summary ---
Author Organization [facility] [place] [address] [place] [address] Care Team Providers Care Medical Officer Name Role Phone Yann Little DO Unavailable Alva Lopez APRN Primary Care Provider [phone] Reason for Visit * Reason Onset Date Comments No Show 06/18/2025 Encounter Details Date Type Department Care Team (Late st Contact Info) Description 06/18/2025 Telephone [facility] [address] [place] [address] Chanell Lucia, [facility] [address] [place], [place] [id number] No Show Social History Tobacco Use Types Packs/Day Years Used Date Smoking Tobacco: Every Day Cigarettes 0.6 21.3 Started: 02/12/2000; Last attempted to quit: 08/07/2019 Smokeless Tobacco: Never Comments:hasnt smoked since August 07 Alcohol Use Standard Drinks/Week Comments No 0 (1 standard drink = 0.6 oz pur e alcohol) [facility] Utilities Answer Date Recorded In the past 12 months has th e electric, gas, oil, or water company threatened to shut off services in your home? No 05/01/2025 Overall Financial Resource Strain (CARDIA) Answe r Date Recorded How hard is it for you to pa y for the very basics like food, housing, medical care, and heating? Somewhat hard 05/01/2025 PHQ-2 Answer Date Recorded PHQ-2 Total Score 0 05/01/2025 [facility] - Occupational Stress Questionnaire Answer Date Recorded Do you feel stress - tense, restless, nervous, or anxious, or unable to sleep at night because your mind is troubled all the time - these days? Not at all 05/01/2025 Exercise Vital Sign Answer Date Recorde d On average, how many days pe r week do you engage in moderate to strenuous exercise (like a brisk walk)? 5 days 05/01/2025 On average, how many minutes do you engage in exercise at this level? 30 min 05/01/2025 Hunger Vital Sign Answer Date Recorded Within the past 12 months, y ou worried that your food would run out before you got the money to buy more. Sometimes true Within the past 12 months, t he food you bought just didn't last and you didn't have money to get more. Never true [facility] IP Transportation Answer D ate Recorded In the past 12 months, has l ack of reliable transportation kept you from medical appointments, meetings, work or from getting things needed for daily living? Yes 05/01/2025 Sexually Active Control Partners Comments Yes Male Comments No Sex and Gender Information Value Date Recorded Sex Assigned at Not on file Legal Sex Female 9:11 PM EDT Gender Identity Not on file Sexual Orientation Not on file documented as of this encounter Functional Status * Is the person deaf or does he/she have serious difficulty hearing? Answer Date of Assessment Author No 05/03/2025 4:51 PM Majo Shoemaker RN * Is the person blind or does he/she have serious difficulty seeing even when wearing glasses? Answer Date of Assessment Author No 05/03/2025 4:51 PM NANCYT Majo Long RN * Does this person have serious difficulty walking or climbing stairs? Answer Date of Assessment Author No 05/03/2025 4:51 PM EDT Majo Long RN * Does this person have difficulty dressing or bathing? Answer Date of Assessment Author No 05/03/2025 4:51 PM EDT Majo Long RN * Because of a physical, mental or emotional condition, does this person have difficulty doing errands alone such as visiting a doctor's office or shopping? Answer Date of Assessment Author No 05/03/2025 4:51 PM EDT Majo Long RN documented as of this encounter Mental Status * Because of a physical, mental or emotional condition, does this person have serious difficulty concentrating, remembering or making decisions? Answer Entry Date Author No 05/03/2025 4:51 PM EDT Majo Long RN documented in this encounter Miscellaneous Notes * Telephone Encounter - Catrachita Oscar RMA - 06/18/2025 12:27 PM EDT Pt no showed her PPV. No good number in chart documented in this encounter Plan of Treatment Not on file documented as of this encounter Goals Goal Patient Goal Type Associated Problems Recent Progress Patient-Stated? Author Blood Pressure < 140/90 Blood Pressure 153/88(2024 4:40 PM EDT) No Mallory Barcenas RMA Maintain a healthy diet, exercise regularly and maintain an ideal body weight General No Yann Little DO Stay Tobacco Free Lifestyle No Yann Little DO documented as of this encounter Visit Diagnoses Not on filedocumented in this encounter Care Teams Medical Officer Relationship Specialty Start Date End Date Alva Lopez APRN [employer] [place] [address] PCP - General Nurse Practitioner 11/28/24 Yann Little DO Sewing Machine Operator Semiautomatic Family Medicine 05/30/18 documented as of this encounter
--- OUTSIDE RECORDS SUMMARY | 2025-07-21 09:52 | XMS_ITS | Clinical Summary ---
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 [place] [address] * RUBELLA ANTIBODY IGG (04/30/2025 3:44 PM EDT) [facility] Rubella IgG 6.820 Index Value 04/30/2025 7:28 PM EDT [facility] Comment: < 0.90 - Negative No significant level of detectable rubella IgG Antibody (Presumed Non-Immune) 0.90 to 0.99 - Equivocal Repeat testing in 10-14 days is recommended > or = 1.00 - Positive Previous exposure or vaccination (Immune) Note: The magnitude of the measured result is not indicative of the amount of antibody present. Blood VENOUS BLOOD / Unknown Venipuncture / Unknown 04/30/2025 3:44 PM EDT 04/30/2025 4:03 PM EDT Chanell Lucia CNM IMMUNOLOGY ORDERABLES Final Result [facility] [address], [place] [address] * HEPATITIS B SURFACE ANTIGEN (04/30/2025 3:44 PM EDT) [facility] Hep Bs Ag Non-Reacti ve Non-React lay 04/30/2025 5:14 PM EDT [facility] Comment:HBsAg not detected. Does not exclude possibility of exposure to HBV. Blood VENOUS BLOOD / Unknown Venipuncture / Unknown 04/30/2025 3:44 PM EDT 04/30/2025 4:03 PM EDT Narrative [facility] - 04/30/2025 5:14 PM EDT Test performed using Leticia [employer] electrochemiluminescence immunassay (ECLIA). Chanell Lucia CNM CHEMISTRY ORDERABLES Final R esult Performing Organization Address [facility] de Phone Number [facility] [address] , [place] [phone] * PARTIAL THROMBOPLASTIN TIME (04/30/2025 3:44 PM EDT) PTT 29.0 25.7 - 36.8 second(s) 04/30/2025 4:18 PM EDT [facility] Comment: Therapeutic range for unfractionated heparin: 50.1 - 98.7 seconds Therapeutic range for direct thrombin inhibitors: Argatroban is 1.5 to 3 times the aPTT baseline. Lepirudin is 1.5 to 2 times the aPTT baseline. The aPTT should not exceed 100 seconds. The dosage of Argatroban should be decreased in patients with hepatic impairment. The dosage of Lepirudin should be decreased in renal insufficiency. Blood VENOUS BLOOD / Unknown Venipuncture / Unknown 04/30/2025 3:44 PM EDT 04/30/2025 4:03 PM EDT Chanell Lucia CNM HEMATOLOGY ORDERABLES Final Result Performing Organization Address [facility] de Phone Number [facility] [employer] , [place] [address] * (ABNORMAL) PT / INR (04/30/2025 3:44 PM EDT) PT 9.5(L) 10.5 - 13.6 second(s) 04/30/2025 4:18 PM EDT [facility] INR 0.83(L) 0.91 - 1.18 (ratio) 04/30/2025 4:18 PM EDT [facility] Comment: Level of Therapy Indications Target INR Range Standard Dose Treatment and prophylaxis of venous 2.0 - 3.0 thrombosis, pulmonary embolism High Dose High risk patients with mechanical 2.5 - 3.5 heart valves Blood VENOUS BLOOD / Unknown Venipuncture / Unknown 04/30/2025 3:44 PM EDT 04/30/2025 4:03 PM EDT Chanell Lucia CNM HEMATOLOGY ORDERABLES Final Result Performing Organization Address City/[facility]/ZIP Co de Phone Number [facility] [address] [facility], [address] [place] [phone] * ANTIBODY SCREEN IGG (04/30/2025 3:44 PM EDT) Pathologist [facility] ABSC IgG Int Negative 04/30/2025 4:50 PM EDT [facility] BLOOD BANK Blood VENOUS BLOOD / Unknown Venipuncture / Unknown 04/30/2025 3:44 PM EDT 04/30/2025 4:03 PM EDT Chanell Lucia CNM BLOOD BANK ORDERABLES Final Result Performing Organization Address [facility] de Phone Number [facility] BLOOD BANK [address] [place] [address] * (ABNORMAL) DRUG CONFIRMATION, AMPHETAMINES - URINE (04/30/2025 3:43 PM EDT) Pathologist [facility] Amphetamine 117(H) Cutoff 50 ng/mL ng/mL 05/01/2025 10:59 AM EDT [facility] Methamphetamine 535(H) Cutoff 50 ng/mL ng/mL 05/01/2025 10:59 AM EDT [facility] MDA <50 Cutoff 50 ng/mL ng/mL 05/01/2025 10:59 AM EDT [facility] MDMA <50 Cutoff 50 ng/mL ng/mL 05/01/2025 10:59 AM EDT [facility] MDEA <50 Cutoff 50 ng/mL ng/mL 05/01/2025 10:59 AM EDT [facility] Phentermine <50 Cutoff 50 ng/mL ng/mL 05/01/2025 10:59 AM EDT [facility] Urine STRUCTURE OF URINARY TRACT PROPER / Unknown 04/30/2025 3:43 PM EDT 04/30/2025 4:00 PM EDT Chanell PINO URINE ORDERABLES Final Resul t Performing Organization Address [facility] Phone Number [facility], [address] , [place] [address] * PROTEIN/CREATININE RATIO URINE (04/30/2025 3:43 PM EDT) Only the most recent of2 resultswithin the time period is included. Urine Protein 40.9 mg/dL 04/30/2025 4:35 PM EDT [facility] Urine Creatinine 31.2 mg/dL 04/30/2025 4:35 PM EDT [facility], [facility] Ur Protein/Creat 1.31 mg/mg 04/30/2025 4:35 PM EDT [facility] Urine STRUCTURE OF URINARY TRACT PROPER / Unknown 04/30/2025 3:43 PM EDT 04/30/2025 4:00 PM EDT Chanell Lucia CNM URINE ORDERABLES Final Resul t Performing Organization Address [facility] de Phone Number [facility] [employer], [address] , [place] [address] * (ABNORMAL) DRUGS OF ABUSE WITH REFLEX TO CONFIRMATION, URINE (04/30/2025 3:43 PM EDT) 6 AM (Heroin) Absent Cutoff 10 ng/mL 04/30/2025 4:35 PM EDT [facility] Amphetamines Presumptive Pos(A) Cutoff 500 ng/mL 04/30/2025 4:35 PM EDT [facility] Barbiturates Absent Cutoff 200 ng/mL 04/30/2025 4:35 PM EDT [facility] Benzodiazepines Absent Cutoff 200 ng/mL 04/30/2025 4:35 PM EDT [facility] Buprenorphine Absent Cutoff 5 ng/mL 04/30/2025 4:35 PM EDT [facility] Cannabinoid Metabolite Absent Cutoff 50 ng/mL 04/30/2025 4:35 PM EDT [facility] Cocaine Metabolite Absent Cutoff 150 ng/mL 04/30/2025 4:35 PM EDT [facility] Fentanyl Absent Cutoff 5 ng/mL 04/30/2025 4:35 PM EDT [facility] Methadone and Metabolite Absent Cutoff 300 ng/mL 04/30/2025 4:35 PM EDT [facility] Opiate Absent Cutoff 300 ng/mL 04/30/2025 4:35 PM EDT [facility] Oxycodone Lvl Absent Cutoff 100 ng/mL 04/30/2025 4:35 PM EDT [facility] Urine Creatinine 31.2 mg/dL 04/30/20 25 4:[address] [facility], [facility] Comment: Greater than 20: Consistent with valid sample Greater than 2 but less than 20: Possible dilution Less than 2: Questionable valid sample Urine STRUCTURE OF URINARY TRACT PROPER / Unknown 04/30/2025 3:43 PM EDT 04/30/2025 4:00 PM EDT Narrative [facility], [facility] - 04/30/2025 4:35 PM EDT These drug classes have been qualitatively screened by immunoassay and are for medical purposes only. Results should not be used for non-medical purposes. Results reported as presumptive positive will be sent for confirmation. Due to possible factors, such as, dilute/adulterated urine, concentration of drug/metabolite being below the cut-off, or antibody specificity of test reagent, a negative result does not rule out drug use. These results are only valid for urine specimens. Any contamination with vaginal pool/amniotic fluid could cause erroneous results. us Chanell Lucia CNM URINE ORDERABLES Final Resul t [facility] [address] [facility] , [place] [address] * STREP B DNA (04/29/2025 4:37 PM EDT) Strep B DNA Not Detected Not Detected 11:55 AM EDT [facility] Swab RECTUM AND VAGINA, CS / Unknown 04/29/2025 4:37 PM EDT 04/29/2025 4:37 PM EDT Narrative [facility] - 05/01/2025 11:55 AM EDT TEST INFORMATION: This qualitative assay utilizes molecular amplification to detect a portion of the Streptococcus agalactiae genome and is intended for a screen of antepartum women in 35-37 weeks gestation. A negative result does not rule out the presence the Group B Strep in concentrations below the limit of detection for the assay. Chanell Lucia CNM MICROBIOLOGY - GENERAL ORDER GORDO Final Result [facility] [address] [facility] , [address] [place] [phone] * CHLAMYDIA/GC BY TMA (04/29/2025 4:37 PM EDT) Chlamydia trachomatis Not Detected Not Detected 04/29/2025 11:47 PM EDT [facility] Neisseria gonorrhoeae Not Detected Not Detected 04/29/2025 11:47 PM EDT [facility] Swab PART OF UTERINE CERVIX / Unknown 04/29/2025 4:37 PM EDT 04/29/2025 4:37 PM EDT [facility] - 04/29/2025 11:47 PM EDT Testing methodology is yard jacker mediated amplification (TMA) using the Aptima Combo 2 assay from [employer]. A negative result does not completely rule out a Chlamydia trachomatis or Neisseria gonorrhoeae infection due to potential inhibitors or levels present below the limit of detection by this assay. Results are dependent on proper collection and transport of specimen. This test is indicated for medical purposes only and should not be used for legal or forensic purposes. The performance characteristics of this assay were validated by the testing laboratory. This assay is FDA cleared to test the following specimens: clinician-collected endocervical, vaginal, male urethral swab specimens, rectal swabs, and throat/pharyngeal swabs; patient collected vaginal specimens within a clinic setting; [employer]in Prep Specimens in PreservCyt Solution; and first-stream, unpreserved male and female urine specimens. Detailed methodology is available upon request. Chanell Lucia CNM MICROBIOLOGY - GENERAL ORDER GORDO Final Result [facility] [address] [facility] , [place] [address] * (ABNORMAL) URINE CULTURE (NO STAIN) (04/29/2025 4:37 PM EDT) Culture Positive Growth(A) 05/02/2025 11:01 AM EDT [facility] Culture >100,000 CFU/mL Escherichia coli SUSCEPTIBI LITY RESULT 05/02/2025 11:01 AM EDT [facility] Urine STRUCTURE OF URINARY TRACT PROPER / Unknown 04/29/2025 4:37 PM EDT 04/29/2025 4:37 PM EDT Narrative Organism Antibiotic Method Susceptibility Escherichia coli Amikacin SUSCEPTIBILITY RESULT Escherichia coli Amoxicillin/Clavulanate SUSCEPTIBILIT Y RESULT <=8/4 ug/mL: Susceptible Escherichia coli Ampicillin SUSCEPTIBILITY RESULT <=8 ug/mL: Susceptible Escherichia coli Ampicillin/Sulbactam SUSCEPTIBILITY R ESULT <=4/2 ug/mL: Susceptible Escherichia coli Aztreonam SUSCEPTIBILITY RESULT <=4 ug/mL: Susceptible Escherichia coli Cefazolin SUSCEPTIBILITY RESULT <=2 ug/mL: Susceptible Escherichia coli Cefepime SUSCEPTIBILITY RESULT Escherichia coli Cefotaxime SUSCEPTIBILITY RESULT Escherichia coli Cefoxitin SUSCEPTIBILITY RESULT <=8 ug/mL: Susceptible Escherichia coli Ceftazidime SUSCEPTIBILITY RESULT Escherichia coli Ceftazidime/Avibactam SUSCEPTIBILITY RESULT Escherichia coli Ceftolozane/Tazobactam SUSCEPTIBILITY RESULT Escherichia coli Ceftriaxone SUSCEPTIBILITY RESULT Escherichia coli Cefuroxime SUSCEPTIBILITY RESULT Escherichia coli Ciprofloxacin SUSCEPTIBILITY RESULT 1 ug/mL: Resistant Escherichia coli Ertapenem SUSCEPTIBILITY RESULT <=0.5 ug/mL: Susceptible Escherichia coli Gentamicin SUSCEPTIBILITY RESULT <=2 ug/mL: Susceptible Escherichia coli Imipenem SUSCEPTIBILITY RESULT <=1 ug/mL: Susceptible Escherichia coli Levofloxacin SUSCEPTIBILITY RESULT 1 ug/mL: Intermediate Escherichia coli Meropenem SUSCEPTIBILITY RESULT <=1 ug/mL: Susceptible Escherichia coli Meropenem/Vaborbactam SUSCEPTIBILITY RESULT Escherichia coli Minocycline SUSCEPTIBILITY RESULT Escherichia coli Moxifloxacin SUSCEPTIBILITY RESULT Escherichia coli Nitrofurantoin SUSCEPTIBILITY RESULT <=32 ug/mL: Susceptible Escherichia coli Piperacillin/Tazobactam SUSCEPTIBILIT Y RESULT <=8 ug/mL: Susceptible Escherichia coli Tetracycline SUSCEPTIBILITY RESULT <=4 ug/mL: Susceptible Escherichia coli Tigecycline SUSCEPTIBILITY RESULT Escherichia coli Tobramycin SUSCEPTIBILITY RESULT 4 ug/mL: Intermediate Escherichia coli Trimethoprim/Sulfame tho xazole SUSCEPTIBILITY RESULT <=0.5/9.5 ug/mL: Susceptible us Chanell Lucia CNM MICROBIOLOGY - GENERAL ORDER GORDO Final Result [facility] [address] [facility] , [place] [address] * PN US BIOPHYSICAL PROFILE WITH NST SINGLE OR FIRST GESTATION (04/29/2025 4:35 PM EDT) Only the most recent of2 resultswithin the time period is included. Anatomical Region Laterality Modality Pelvis Other Narrative 04/30/2025 3:34 PM EDT BPP 8/8 cephalic Reactive NST us Dara Camacho MD IMG ORDERA BLES Final Result * (ABNORMAL) [facility] URINALYSIS POC (04/29/2025 3:53 PM EDT) UA Color POC Yellow Color 04/29/2025 3:55 PM EDT [facility] UA Appear POC Clear Clear 04/29/2025 3:55 PM EDT [facility] UA Gluc POC Negative Negative mg/dL 04/29/2025 3:55 PM EDT [facility] UA Bili POC Negative Negative 04/29/2025 3:55 PM EDT [facility] UA Ketones POC Negative Negative mg/dL 04/29/2025 3:55 PM EDT [facility] UA SG POC 1.020 1.001 - 1.035 no units 04/29/2025 3:55 PM EDT [facility] UA Blood POC Small(A) Negative 04/29/2025 3:55 PM EDT [facility] UA pH POC 6.0 5.0 - 8.0 pH 04/29/2025 3:55 PM EDT [facility] UA Protein POC 100(A) Negative mg/dL 04/29/2025 3:55 PM EDT [facility] UA Urobilinogen POC 0.2 0.2, 1.0 04/29/2025 3:55 PM EDT [facility] UA Nitrite POC Positive(A) Negative 3:55 PM EDT [facility] UA Leuk Est POC Negative Negative 3:55 PM EDT [facility] Urine STRUCTURE OF URINARY TRACT PROPER / Unknown 04/29/2025 3:53 PM EDT 04/29/2025 3:55 PM EDT Chanell Lucia CNM POINT OF CARE TEST ORDERABLE S Final Result [facility] [address] [place] [phone] * CLAIMS ASSOCIATE CYTOLOGY REQUEST (PAP ONLY) (01/07/2025 2:56 PM EDT) CASE REPORT Gynecologic Cytology Report Case: [id number] Authorizing Provider: Maranda Rice CNM Collected: 01/07/2025 1456 Ordering Location: [facility] Received: 01/07/2025 1456 First Screen: Kadeem Amaro CT Specimen: LIQUID-BASED PAP - CERVICAL/ENDOCERV ICAL, Cervix, Endocervical 01/09/2025 7:11 AM EDT [facility] PAP FINAL DIAGNOSIS Negative for intraepithelial lesion or malignancy 01/09/2025 7:11 AM EDT [facility] at 0711 EDT MICROSCOPIC DESCRIPTION Microscopic examination is performed and the findings corroborate the diagnosis. 01/09/2025 7:11 AM EDT [facility] PAP SMEAR ADEQUACY Satisfactory for evaluation 01/09/2025 7:11 AM EDT [facility] PAP ORGANISMS NOTED Shift in earl suggestive of bacterial vaginosis. 01/09/2025 7:11 AM EDT [facility] ENDOCERVICAL T-ZONE Transformation zone present 01/09/2025 7:11 AM EDT [facility] EMBEDDED IMAGES 7:11 AM EDT [facility] PAP DISCLAIMER The Pap Smear is a screening test that aids in the detection of cervical cancer and cancer precursors. Both false positive and false negative results can occur. The test should be used at regular intervals, and positive results should be confirmed before definitive therapy. Processed using the ThinPrep Facility Manager Automated cytology screening device (English TV). 01/09/2025 7:11 AM EDT [facility] Thin Prep ENDOCERVICAL STRUCTURE / Unknown 01/07/2025 2:56 PM EDT 01/07/2025 2:56 PM EDT us Maranda Rice CN CYTOLOGY ORDERABLES Final R esult [facility] [address] [place] [phone] from Last 3 Months or Most Recently Relevant to Health Maintenance Insurance [facility] [employer] [place] * Guarantor: [facility] Account Type Relation to Patient Date of Phone Billing Address [employer] [facility] [address] [facility] [address] [place] [address] Advance Directives For more information, please contact: [phone] * Full Code (Latest Code Status on File) Date Activated Date Inactivated Comments 04/30/2025 3:37 PM 05/03/2025 9:37 PM * Full Code Date Activated Date Inactivated Comments 10/08/2019 4:11 PM 10/19/2019 11:09 PM * Full Code Date Activated Date Inactivated Comments 10/02/2019 2:59 PM 10/03/2019 9:59 PM * Full Code Date Activated Date Inactivated Comments 10/06/2018 10:28 AM 10/07/2018 5:29 PM * Full Code Date Activated Date Inactivated Comments 02/11/2015 6:47 PM 02/19/2015 3:38 PM Care Teams Aged Or Disabled Care Worker Relationship Specialty Start Date End Date Alva Lopez, [place] [place] [address] PCP - General Nurse Practitioner 11/28/24 Yann Little DO [employer] Worker Family Medicine 05/30/18
--- OUTSIDE RECORDS SUMMARY | 2025-07-21 09:52 | XMS_ITS | Encounter Summary ---
Author Organization [place] [address] Care Team Providers Care Mechanical Drawing Teacher Name Role Phone Yann Little DO Unavailable Alva Lopez APRN Primary Care Provider [phone] Encounter Details Date Type Department Care Team (Late st Contact Info) Description 05/01/2025 Results [facility]-Up [facility] [address] [place] [id number] Farideh Alan, LENARD STREP B DNA, CHLAMYDIA/GC BY TMA, URINE CULTURE (NO STAIN) Social History Tobacco Use Types Packs/Day Years Used Date Smoking Tobacco: Every Day Cigarettes 0.6 21.3 Started: 02/12/2000; Last attempted to quit: 08/07/2019 Smokeless Tobacco: Never Comments:hasnt smoked since August 07 Alcohol Use Standard Drinks/Week Comments No 0 (1 standard drink = 0.6 oz pur e alcohol) [facility] Utilities Answer Date Recorded In the past 12 months has e electric, gas, oil, or water company threatened to shut off services in your home? No 05/01/2025 Overall Financial Resource Strain (CARDIA) Answe r Date Recorded How hard is it for you to pa y for the very basics like food, housing, medical care, and heating? Somewhat hard 05/01/2025 PHQ-2 Answer Date Recorded PHQ-2 Total Score 0 05/01/2025 [facility] - Occupational Stress [...] have money to get more. Never true [facility] IP Transportation Answer D ate Recorded In [...] as of this encounter Functional Status * Cognitive and Functional Status Question Answer Date of Assessment Author Is the person deaf or does h e/she have serious difficulty hearing? No 05/03/2025 4:51 PM EDT Sapphire Waite RN Is the person blind or does he/she have serious difficulty seeing even when wearing glasses? No 05/03/2025 4:51 PM EDT Sapphire Long RN Does this person have seriou s difficulty walking or climbing stairs? No 05/03/2025 4:51 PM EDT Sapphire Long RN Does this person have diffic ulty dressing or bathing? No 05/03/2025 4:51 PM EDT Sapphire Long, LENARD * Is the person deaf or does he/she have serious difficulty hearing? Answer Date of Assessment Author No 10/19/2019 3:34 PM Yarelis Love RN * Is the person blind or does he/she have serious difficulty seeing even when wearing glasses? Answer Date of Assessment Author No 10/19/2019 3:34 PM Yarelis Love RN * Does this person have serious difficulty walking or climbing stairs? Answer Date of Assessment Author No 10/19/2019 3:34 PM Yarelis Love RN * Does this person have difficulty dressing or bathing? Answer Date of Assessment Author No 10/19/2019 3:34 PM Yarelis Love RN * Because of a physical, mental or emotional condition, does this person have difficulty doing errands alone such as visiting a doctor's office or shopping? Answer Date of Assessment Author No 10/19/2019 3:34 PM Yarelis Love RN * Question Answer Date of Assessment Author Little interest or pleasure in doing things 0 05/01/2025 11:28 AM EDT Evelia Mandel [employer] Feeling down, depressed, or hopeless 0 05/01/2025 11:28 AM EDT Evelia Mandel [employer] PHQ-2 Total Score 0 05/01/2025 11:28 AM EDT Evelia Mandel [employer]DEL * PHQ-9 Total Score Answer Date of Assessment Author 0 05/01/2025 11:28 AM EDT Evelia Mandel MSW * PHQ-2 Total Score Answer Date of Assessment Author 0 05/01/2025 11:28 AM EDT Evelia Mandel [employer]DEL documented as of this encounter Mental Status * Cognitive and Functional Status Question Answer Entry Date Author Because of a physical, menta l or emotional condition, does this person have difficulty doing errands alone such as visiting a doctor's office or shopping? No 05/03/2025 4:51 PM EDT Sapphire Long RN Because of a physical, menta l or emotional condition, does this person have serious difficulty concentrating, remembering or making decisions? No 05/03/2025 4:51 PM EDT Sapphire Long, RN * Because of a physical, mental or emotional condition, does this person have serious difficulty concentrating, remembering or making decisions? Answer Entry Date Author No 10/19/2019 3:34 PM Yarelis Love, LENARD documented in this encounter Plan of Treatment [...] on filedocumented in this encounter Care Teams Mechanical Drawing Teacher Relationship Specialty Start Date End Date Alva Lopez APRN [employer] [id number] PCP - General Nurse Practitioner 11/28/24 Yann Little DO [facility] 05/30/18 documented as of this encounter
--- OUTSIDE RECORDS SUMMARY | 2025-07-21 09:52 | XMS_ITS | Encounter Summary ---
Author Organization [place] [address] Care Team Providers Care Truck Driving Instructor Name Role Phone Yann Little DO Unavailable Alva Lopez APRN Primary Care Provider [phone] Reason for Visit * Reason Comments Medication Refill Encounter Details Date Type Department Care Team (Late st Contact Info) Description 05/25/2025 Refill [facility] [address] [place], [place] [id number] Chanell Lucia, [facility] [address] [place], [place] [address] Medication Refill Social History Tobacco Use Types Packs/Day Years Used Date Smoking Tobacco: Every Day Cigarettes 0.6 21.3 Started: 02/12/2000; Last attempted to quit: 08/07/2019 Smokeless Tobacco: Never Comments:hasnt smoked since August 07 Alcohol Use Standard Drinks/Week Comments No 0 (1 standard drink = 0.6 oz pur e alcohol) [facility] Utilities Answer Date Recorded In [...] 0 05/01/2025 [facility] Questionnaire Answer Date Recorded [...] have money to get more. Never true [facility] Transportation Answer D ate Recorded [...] 05/03/2025 4:51 PM Majo Shoemaker RN * Does this person have serious [...] 05/03/2025 4:51 PM NANCYT Majo Long RN documented as of this encounter Mental Status * Because of a physical, mental or emotional condition, does this person have serious difficulty concentrating, remembering or making decisions? Answer Entry Date Author No 05/03/2025 4:51 PM Majo Shoemaker RN documented in this encounter Plan of Treatment [...] documented as of this encounter Visit Diagnoses Diagnosis Heartburn during in third trimester documented in this encounter Care Teams Truck Driving Instructor Relationship Specialty Start Date End Date Alva Lopez APRN [employer] [place] [address] PCP - General Nurse Practitioner 11/28/24 Yann Little DO [employer] [facility] 05/30/18 documented as of this encounter
--- NOTE | 2025-07-21 10:00 | US_ITS ---
FINAL REPORT CLINICAL HISTORY: Hep C, FINDINGS: HEPATIC ULTRASOUND ELASTOGRAPHY EQUIPMENT: Steele EPIQ Elite 5, C5-1 probe The median liver stiffness value is 1.16 m/s (4.03 KPa) consistent with no-mild fibrosis. The IQR/med is 13%. IMPRESSION: Measurements suggestive of no-mild fibrosis. Note: In the setting of elevated 1iver function tests, post prandial state, and CHF the degree of liver fibrosis may be overestimated Liver Stiffness Value Recommendation (per SRU): <= 5 kPa (1.3 m/sec) High probability of being normal < 9 kPa (1.7 m/sec) In the absence of other known clinical signs, rules out cACLD. If there are known clinical signs, may need further test for confirmation 9-13 kPa (1.7-2.1 m/sec) Suggestive of cACLD but need further test for confirmation > 13 kPa (2.1 m/sec) Rules in cACLD > 17 kPa (2.4 m/sec) Suggestive of CSPH Note.-ARFI = acoustic radiation force impulse, cACLD = compensated advanced chronic liver disease, CSPH = clinically significant portal hypertension, NAFLD = non-alcoholic fatty liver disease. Reviewed, Interpreted and Dictated by Rose Kincaid MD Transcribed by Cleo Pantoja Authenticated and [facility]
== END 2025-07-21 23:59 | disposition home or self-care (01) ==
LOC: RAD 09:49
PROVIDERS: PCP Nurse Practitioner Family; Visit Provider Nurse Practitioner Family
DX: B18.2 Chronic viral hepatitis C (principal); I50.9 Heart failure, unspecified; R94.5 Abnormal results of liver function studies
CPT/HCPCS: 76981